=== PATIENT | male | born 1965 | race American Indian/Alaskan Native ===

== ENCOUNTER 2020-04-11 01:24 | Emergency (ER) | payer OTHER ==
[2020-04-11] MEDS ORDERED: KETOROLAC 30 MG/1 ML INJ IM ONE (02:47)
[2020-04-11] MEDS ORDERED: oxyCODONE /ACETAMINOPHEN 5-325MG TAB PO ONE (02:47)
--- NOTE | 2020-04-11 03:01 | Emergency Department Report ---
ED General Adult HPI - General Chief complaint: Back Pain/Injury Stated complaint: RT SIDE SHARP PAIN Time Seen by Provider: 04/11/20 02:36 Source: patient Mode of arrival: Ambulatory Limitations: No Limitations - History of Present Illness Initial comments: 54-year-old -[place] male patient with history of hypertension presents with complaints of right buttock pain radiating down his right leg x2 days. Patient denies any injuries to his low back, numbness/tingling/weakness in his legs, loss of bladder/bowel control, fever/chills/sweats, or urinary symptoms. He rates his current pain as a 10/10 in severity and states it seems to have worsened after applying heat to his lower back/buttocks multiple times. Patient states ibuprofen and Flexeril are not helping. He denies any prior history of sciatica. No leg swelling per patient. Patient states pain worsens with sitting on his buttocks and walking - Related Data Previous Rx's Medication Instructions Recorded Last Taken Type Acetaminophen/Codeine [Tylenol 1 tab PO Q8H PRN #10 tab 04/11/20 Unknown Rx /Codeine # 3 tab] Diclofenac Sodium 75 mg PO BID PRN #14 tablet. 04/11/20 Unknown Rx methocarbamoL [Methocarbamol] 1,500 mg PO TID PRN #30 tablet 04/11/20 Unknown Rx Allergies Allergy/AdvReac Type Severity Reaction Status Date / Time No Known Allergies Allergy Unverified 04/11/20 02:13 ED Review of Systems ROS: Stated complaint: RT SIDE SHARP PAIN Other details as noted in HPI Constitutional: denies: diaphoresis, fever, malaise Respiratory: denies: shortness of breath Cardiovascular: denies: chest pain Musculoskeletal: as per HPI Neurological: denies: numbness, paresthesias ED Past Medical Hx - Past Medical History Previous Medical History?: Yes Hx Hypertension: Yes - Surgical History Past Surgical History?: No - Social History Smoking Status: Current Every Day Smoker Substance Use Type: None - Medications Home Medications: Home Medications Medication Instructions Recorded Confirmed Last Taken Type Acetaminophen/Codeine [Tylenol 1 tab PO Q8H PRN #10 tab 04/11/20 Unknown Rx /Codeine # 3 tab] Diclofenac Sodium 75 mg PO BID PRN #14 tablet. 04/11/20 Unknown Rx methocarbamoL [Methocarbamol] 1,500 mg PO TID PRN #30 tablet 04/11/20 Unknown Rx ED Physical Exam - General Limitations: No Limitations General appearance: alert, in no apparent distress - Head Head exam: Present: atraumatic, normocephalic - Eye Eye exam: Present: normal appearance. Absent: scleral icterus - Neck Neck exam: Present: full ROM - Respiratory Respiratory exam: Present: normal lung sounds bilaterally. Absent: respiratory distress - Cardiovascular Cardiovascular Exam: Present: regular rate - GI/Abdominal GI/Abdominal exam: Present: soft. Absent: tenderness - Expanded Back Exam Expanded Back exam: Absent: saddle anesthesia Back exam: Sciatic Notch Tenderness: Right - Neurological Exam Neurological exam: Present: alert, oriented X3. Absent: motor sensory deficit - Expanded Neurological Exam Expanded Sensory exam: Lower Extremity Light Touch: Normal Motor strength exam: RLE: 5, LLE: 5 - Psychiatric Psychiatric exam: Present: normal affect, normal mood - Skin Skin exam: Present: warm, dry, intact, normal color. Absent: rash ED Course Vital Signs 04/11/20 02:01 Temperature 98.0 F Pulse Rate 80 Respiratory 18 Rate Blood Pressure 150/89 O2 Sat by Pulse 98 Oximetry ED Medical Decision Making - Medical Decision Making 54-year-old -[place] male patient with history of hypertension presents with complaints of right buttock pain radiating down his right leg x2 days. Patient denies any injuries to his low back, numbness/tingling/weakness in his legs, loss of bladder/bowel control, fever/chills/sweats, or urinary symptoms. He rates his current pain as a 10/10 in severity and states it seems to have worsened after applying heat to his lower back/buttocks multiple times. Patient states ibuprofen and Flexeril are not helping. He denies any prior history of sciatica. No leg swelling per patient. Patient states pain worsens with sitting on his buttocks and walking History and exam are consistent with sciatica. Patient given Toradol and Robaxin here in ED and pain is significantly improved. He is now ambulatory with normal gait. Discussed sciatica stretches and need for follow-up with primary care. Also discussed signs and symptoms that should prompt immediate return to the emergency department in detail patient verbalizes understanding. He is well-appearing and stable for discharge home peer Critical care attestation.: If time is entered above; I have spent that time in minutes in the direct care of this critically ill patient, excluding procedure time. ED Disposition Clinical Impression: Sciatica, right side Disposition: DC- TO HOME OR SELFCARE Is pt being admited?: No Condition: Stable Instructions: Sciatica, Sciatica Rehab-SportsMed Prescriptions: Diclofenac Sodium 75 mg PO BID PRN #14 tablet. PRN Reason: Pain methocarbamoL [Methocarbamol] 1,500 mg PO TID PRN #30 tablet PRN Reason: Muscle spasm/tightness Acetaminophen/Codeine [Tylenol /Codeine # 3 tab] 1 tab PO Q8H PRN #10 tab PRN Reason: Pain , Severe (7-10) Referrals: PRIMARY CARE, [Primary Care Provider] - 3-5 Days
[2020-04-11 04:50] VITALS: BP 122/78
== END 2020-04-11 04:50 | disposition home or self-care (01) ==
LOC: ED 01:24
DX: M54.31 Sciatica, right side (principal); I10 Essential (primary) hypertension; F17.200 Nicotine dependence, unspecified, uncomplicated; Z79.899 Other long term (current) drug therapy
CPT/HCPCS: 96372; 99282; J1885